=== PATIENT | female | born 1945 | race Caucasian/White ===

== ENCOUNTER 2025-01-26 15:34 | Inpatient (IN) | payer MEDICARE, OTHER ==
[2025-01-26] MEDS ORDERED: ALBUTEROL NEBULIZED 2.5 MG/3 ML INHALATION PRN (21:37)
[2025-01-26] MEDS: carBAMazepine 200 MG TAB PO SCH (21:59)
[2025-01-26] MEDS: OXYBUTYNIN 15 MG TAB.ER.24 PO SCH (21:59)
[2025-01-26] MEDS: tiZANidine 4 MG TAB PO PRN (21:59)
[2025-01-27] MEDS: HYDROcodone/APAP 5-325MG 1 EACH TAB PO PRN (00:38)
[2025-01-27] MEDS: METOPROLOL TARTRATE 50 MG TAB PO SCH (06:14)
--- NOTE | 2025-01-27 08:11 | XR ---
EXAMINATION TYPE: XR chest 2V DATE OF EXAM: 01/27/2025 8:05 AM COMPARISON: 11/20/2015 CLINICAL INDICATION: Female, 79 years old with history of SOB, CHF, , TECHNIQUE: AP and lateral views FINDINGS: Heart mildly enlarged. Mild hyperinflation. Diffuse interstitial and vascular density. No jose conso lidation or pleural effusion. IMPRESSION: Correlate for CHF with pulmonary vascular congestion. No jose pulmonary edema. [facility], , 01/27/2025 8:08 AM
[2025-01-27] MEDS: PANTOPRAZOLE 40 MG TABLET PO SCH (08:20)
[2025-01-27] MEDS: amLODIPine 10 MG TAB PO SCH (08:20)
[2025-01-27 08:45] LABS: Basophils % (A) 1 %; Eosinophils # (A) 0.3 k/uL (0-0.7); Eosinophils % (A) 5 %; HCT 42.6 % (34.0-46.0); HGB 12.8 gm/dL (11.4-16.0); Hypochromasia Slight; Lymphocytes # (A) 1.3 k/uL (1.0-4.8); Lymphocytes % (A) 22 %; MCHC 29.9 g/dL (31.0-37.0); MCV 100.3 fL (80.0-100.0); Macrocytosis Slight; Mean Platelet Volume 7.6; Monocytes # (A) 0.5 k/uL (0-1.0); Monocytes % (A) 9 %; Neutrophils # (A) 3.5 k/uL (1.3-7.7); Neutrophils % (A) 61 %; Platelet Count 377 k/uL (150-450); RBC 4.25 m/uL (3.80-5.40); RDW 14.6 % (11.5-15.5); WBC 5.8 k/uL (3.8-10.6)
[2025-01-27 09:02] LABS: ALT 22 U/L (4-34); AST 33 U/L (14-36); African American GFR (CKD) 72 (>60 ml/min/1.73 sqM); Albumin 3.4 g/dL (3.5-5.0); Alkaline Phosphatase 101 U/L (38-126); Anion Gap 3 mmol/L; Blood Urea Nitrogen 21 mg/dL (7-17); Calcium 8.5 mg/dL (8.4-10.2); Carbon Dioxide 39 mmol/L (22-30); Chloride 89 mmol/L (98-107); Glucose 115 mg/dL (74-99); Non-African American GFR(CKD) 62 (>60 ml/min/1.73 sqM); Potassium 4.6 mmol/L (3.5-5.1); Sodium 131 mmol/L (137-145); Total Bilirubin 0.7 mg/dL (0.2-1.3); Total Protein 6.5 g/dL (6.3-8.2)
[2025-01-27 09:10] LABS: NT-Pro-B-Type Natriuretic Pept 10100 pg/mL
[2025-01-27] MEDS: NON FORMULARY DRUG (Prevagen 1 TAB) PO SCH (10:18)
[2025-01-27] MEDS: SPIRONOLACTONE 25 MG TAB PO SCH (10:20)
[2025-01-27] MEDS: TORSEMIDE 20 MG TAB PO SCH (10:20)
[2025-01-27] MEDS: APIXABAN 5 MG TAB PO SCH (10:20)
--- NOTE | 2025-01-27 10:55 | P.CRDCN ---
History of Present Illness History of present illness: HISTORY OF PRESENT ILLNESS: This is a 79-year-old female with a past medical history significant for fibromyalgia, hypertension, osteoarthritis, seizure disorder, and syncope. 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 We have been asked to see the patient in consultation for new CHF and atrial fibrillation. Patient examined at the bedside. Patient was transferred from [facility] to [facility] for further evaluation and treatment. Patient is found to be positive for influenza. Patient was also diagnosed with atrial fibrillation and CHF. Patient currently denies chest pain or pressure. She denies shortness of breath. Vital signs are stable. Patient had an echocardiogram performed on 01/23/2025 at [facility] revealing ejection fraction 35 to 40% with global decreased wall motion, trace MR and trace TR. 2 view chest x-ray completed on 01/23/2025 revealed congestive heart failure changes with cardiomegaly and mild pulmonary vascular congestion. Patient also underwent chest CTA on 01/26/2025 revealing moderate to severe coronary artery calcifications, cardiomegaly with pulmonary vascular congestion and pulmonary hypertension. No evidence of pulmonary embolism. DIAGNOSTICS: - EKG reveals atrial fibrillation with slow ventricular rate - Chest xray correlate for CHF with pulmonary vascular congestion - Laboratory data: WBC 5.8. Hemoglobin 12.8. Platelet count 377. Sodium 131. Potassium 4.6. BUN 21. Creatinine 0.88. TSH 3.850. proBNP 10,100. - Current home cardiac medications include amlodipine 10 mg daily and metoprolol titrate 50 mg twice a day REVIEW OF SYSTEMS: At the time of my exam: CONSTITUTIONAL: Denies fever or chills. HEENT: Denies blurred vision, vision changes, or eye pain. Denies hemoptysis CARDIOVASCULAR: Denies chest pain. Denies orthopnea. Denies PND. Denies palpitations RESPIRATORY: Denies shortness of breath. GASTROINTESTINAL: Denies abdominal pain. Denies nausea or vomiting. HEMATOLOGIC: Denies bleeding disorders. GENITOURINARY: Denies any blood in urine. SKIN: Denies pruitis. Denies rash. PHYSICAL EXAM: VITAL SIGNS: Reviewed. GENERAL: Well-developed in no acute distress. HEENT: Head is normocephalic. Pupils are equal, round. Sclerae anicteric. Mucous membranes of the mouth are moist. Neck supple. No JVD or thyromegaly LUNGS: Respirations even and unlabored. Lungs with fine crackles at the bases. Poor inspiratory effort. HEART: Bradycardic. Irregular rate and rhythm. S1 and S2 heard. ABDOMEN: Soft. Nondistended. Nontender. EXTREMITIES: Normal range of motion. No clubbing or cyanosis. Peripheral pulses intact. No lower extremity edema NEUROLOGIC: Drowsy but arousable ASSESSMENT: Shortness of breath Acute influenza A Acute heart failure with reduced EF 35 to 40% Cardiomyopathy, ischemic versus nonischemic New onset atrial fibrillation with slow ventricular rate History of hypertension History of fibromyalgia History of osteoarthritis History of seizure disorder History of syncope PLAN: No need to repeat echocardiogram as this was performed at [facility] in December 2024 Discontinue amlodipine Decrease metoprolol tartrate to 25 mg twice a day Add Eliquis 5 mg twice a day Add atorvastatin 20 mg at night Add losartan 25 mg daily Add spironolactone 12.5 mg daily Add Demadex 10 mg daily Continue telemetry monitoring Recommend eventual ischemic evaluation Further recommendations pending patient course Nurse practitioner note has been reviewed by physician. Signing provider agrees with the documented findings, assessment, and plan of care documented by ICT BUSINESS DEVELOPMENT MANAGER as a scribe. Past Medical History Past Medical History: Fibromyalgia, Hypertension, Osteoarthritis (OA), Pneumonia, Rheumatoid Arthritis (RA), Seizure Disorder, Syncope Additional Past Medical History / Comment(s): electric shocks to the right eye and eye twitches -- nerve endings History of Any Multi-Drug Resistant Organisms: None Reported Past Surgical History: Bariatric Surgery, Cholecystectomy, Joint Replacement, Orthopedic Surgery Additional Past Surgical History / Comment(s): left femur gamaliel from knee to hip 09/09. gastric bypass. bilat carpal tunnel. bilat tka. bilat hip. 2009 - Dr Mao out of [place]; surgery on right eye with silicone implants to stop the nerve shocking. Past Anesthesia/Blood Transfusion Reactions: No Reported Reaction Past Psychological History: No Psychological Hx Reported Smoking Status: Former smoker Past Alcohol Use History: None Reported Past Drug Use History: None Reported - Past Family History Father Family Medical History: CVA/TIA, Diabetes Mellitus Mother Family Medical History: No Reported History Brother(s) History Unknown: Yes Sister(s) History Unknown: Yes Medications and Allergies Home Medications Medication Instructions Recorded Confirmed Type HYDROcodone/APAP 5-325MG [[place] 1 tab PO Q8H PRN 11/16/15 01/26/25 History 5-325] Oxybutynin Chloride [oxyBUTYnin 15 mg PO HS 11/16/15 01/26/25 History chloride ER] carBAMazepine [TEGretol] 200 mg PO TID 11/16/15 01/26/25 History tiZANidine [Zanaflex] 4 mg PO BID PRN 11/16/15 01/26/25 History Albuterol Inhaler [Ventolin Hfa 2 puff INHALATION RT-Q4H PRN 01/26/25 01/26/25 History Inhaler] Ibuprofen [Motrin] 800 mg PO Q8H PRN 01/26/25 01/26/25 History Metoprolol Tartrate [Lopressor] 50 mg PO BID-W/MEALS 01/26/25 01/26/25 History Omeprazole 20 mg PO DAILY 01/26/25 01/26/25 History Prevagen 1 tab PO DAILY 01/26/25 01/26/25 History amLODIPine [Norvasc] 10 mg PO DAILY 01/26/25 01/26/25 History Allergies Allergy/AdvReac Type Severity Reaction Status Date / Time No Known Allergies Allergy Verified 01/26/25 19:29 Physical Exam Vitals: Vital Signs Temp Pulse Resp BP Pulse Ox 01/27/25 04:00 69 16 112/54 98 01/27/25 00:00 93 16 104/62 95 01/26/25 19:33 97.9 F 89 16 124/73 93 L Intake and Output 01/26/25 01/27/25 01/27/25 22:59 06:59 14:59 Intake Total 540 Output Total 375 Balance 540 -375 Intake: Oral 540 Output: Urine 375 Other: Voiding Method Indwelling Catheter Indwelling Catheter Weight 126 kg 127 kg Results 01/27/25 08:10 01/27/25 08:10 Current Medications Generic Name Dose Route Start Last Admin Trade Name Freq PRN Reason Stop Dose Admin Hydrocodone Bitart/Acetaminophen 1 each 01/26/25 21:37 01/27/25 00:38 Hydrocodone/Apap 5-325mg 1 Each Tab PO 1 each Q8H PRN Administration Pain Albuterol Sulfate 2.5 mg 01/26/25 21:37 Albuterol Nebulized 2.5 Mg/3 Ml INHALATION RT-Q4H PRN Shortness Of Breath Amlodipine Besylate 10 mg 01/27/25 09:00 Amlodipine 10 Mg Tab PO DAILY YOUNG Carbamazepine 200 mg 01/26/25 22:00 01/26/25 21:59 Carbamazepine 200 Mg Tab PO 200 mg TID YOUNG Administration Metoprolol Tartrate 50 mg 01/27/25 07:30 01/27/25 06:14 Metoprolol Tartrate 50 Mg Tab PO 50 mg BID-W/MEALS YOUNG Administration Oxybutynin Chloride 15 mg 01/26/25 21:45 01/26/25 21:59 Oxybutynin 15 Mg Tab.Er.24 PO 15 mg HS YOUNG Administration Pantoprazole Sodium 40 mg 01/27/25 09:00 Pantoprazole 40 Mg Tablet PO DAILY [facility] Tizanidine HCl 4 mg 01/26/25 21:37 01/27/25 06:15 Tizanidine 4 Mg Tab PO 4 mg BID PRN Administration Muscle Spasm Intake and Output 01/26/25 01/27/25 01/27/25 22:59 06:59 14:59 Intake Total 540 Output Total 375 Balance 540 -375 Intake: Oral 540 Output: Urine 375 Other: Voiding Method Indwelling Catheter Indwelling Catheter Weight 126 kg 127 kg
[2025-01-27] MEDS: METOPROLOL TARTRATE 25 MG TAB PO SCH (17:21)
[2025-01-27] MEDS ORDERED: METOPROLOL TARTRATE 50 MG TAB PO SCH (17:30)
[2025-01-27] MEDS ORDERED: METOPROLOL SUCCINATE (ER) 25 MG TAB.ER.24H PO SCH (17:30)
--- NOTE | 2025-01-27 17:35 | P.HPIM ---
History of Present Illness H&P Date: 01/27/25 Chief Complaint: Short of breath This is a pleasant 79-year-old patient, follows with GLOBAL RECRUITER Reny Mcrae. Patient is very hard of hearing. But can do some mouth reading and hand movements reading. Chronic medical condition include fibromyalgia, hypertension, osteoarthritis, rheumatoid arthritis, seizure disorder,. Patient lives with her daughter. Does use a four-wheel walker. Patient was transferred here from [facility] accepted by Dr. Ordonez in from cardiology. Patient was then diagnosed with atrial fibrillation and CHF. Patient complains of shortness of breath. Cough with no sputum production. Also diagnosed positive for influenza. Per cardiology 2D echo in January 23 of this year EF showed 30 to 35%. Review of systems difficult because patient is very hard of hearing Social history: Lives with her daughter. Does use a four-wheel walker Physical examination: VITAL SIGNS: 97.4, 81, 18, 106/54, 97% on 2 L GENERAL: BMI 51.2, laying in bed, appears short of breath. EYES: Pupils equal. Conjunctiva edyta l. HEENT: External appearance of nose and ears normal, oral cavity grossly normal. Very hard of hearing NECK: JVD possibly raised; masses not palpable. HEART: First and second heart sounds are normal; no edema. LUNGS: Respiratory rate increased with few crackles. ABDOMEN: Soft, nontender, liver spleen not palpable, no masses palpable. PSYCH: Patient does answer questions but because of very hard of hearing sometimes difficult l. MUSCULOSKELETAL:No Clubbing/cyanosis;muscles-grossly intact. OA NEUROLOGICAL: Cranial nerves grossly intact; no facial asymmetry, power and sensation grossly intact. LYMPHATICS: No lymph nodes palpable in the axilla and neck INVESTIGATIONS, reviewed in the clinical context: January 27, 2025: White count 5.8 hemoglobin 12.8 platelets 377 sodium 131 potassium 4.6 BUN 21 creatinine 0.88 proBNP 99807 TSH 3.8 EKG tracing personally reviewed by me-atrial fibrillation. Rate 68. Chest x-ray film personally reviewed by me-cardiomegaly. Pulm edema Previous studies: Per cardiology notes 2D echo on January 23, 2025 at [facility] showed a EF of 35 to 40%. Global decrease in wall motion. Assessment plan: - Acute on chronic congestive heart failure exacerbation from systolic dys function EF 30 to 35% Aldactone. Lopressor. Cozaar. Diuretics. Strict I's and O's. - Acute hypoxic respiratory failure on presentation combination of influenza and CHF Patient was 93% on 2 L on presentation. Oxygen supplementation - Persistent atrial fibrillation. Rate controlled Telemetry. Lopressor 25 mg twice daily. Eliquis - Acute influenza Tamiflu - Hyponatremia, with hypervolemia Diuretics - Chronic urine incontinence/bladder dysfunction Ditropan XL - Essential hypertension Cozaar. Lopressor. - Chronic rheumatoid arthritis [place] 5 as needed - GERD Omeprazole - COPD in a prior smoker Albuterol as needed - Severely hard of hearing - Seizure disorder Tegretol - Chronic gait dysfunction does use a four-wheel walker Past Medical History Past Medical History: Fibromyalgia, Hypertension, Osteoarthritis (OA), Pneumonia , Rheumatoid Arthritis (RA), Seizure Disorder, Syncope Additional Past Medical History / Comment(s): electric shocks to the right eye and eye twitches -- nerve endings History of Any Multi-Drug Resistant Organisms: None Reported Past Surgical History: Bariatric Surgery, Cholecystectomy, Joint Replacement, Orthopedic Surgery Additional Past Surgical History / Comment(s): left femur gamaliel from knee to hip 09/09. gastric bypass. bilat carpal tunnel. bilat tka. bilat hip. 2009 - Dr Mao out of [place]; surgery on right eye with silicone implants to stop the nerve shocking. Past Anesthesia/Blood Transfusion Reactions: No Reported Reaction Past Psychological History: No Psychological Hx Reported Smoking Status: Former smoker Past Alcohol Use History: None Reported Past Drug Use History: None Reported - Past Family History Father Family Medical History: CVA/TIA, Diabetes Mellitus Mother Family Medical History: No Reported History Brother(s) History Unknown: Yes Sister(s) History Unknown: Yes Medications and Allergies Home Medications Medication Instructions Recorded Confirmed Type HYDROcodone/APAP 5-325MG [[place] 1 tab PO Q8H PRN 11/16/15 01/26/25 History 5-325] Oxybutynin Chloride [oxyBUTYnin 15 mg PO HS 11/16/15 01/26/25 History chloride ER] carBAMazepine [TEGretol] 200 mg PO TID 11/16/15 01/26/25 History tiZANidine [Zanaflex] 4 mg PO BID PRN 11/16/15 01/26/25 History Albuterol Inhaler [Ventolin Hfa 2 puff INHALATION RT-Q4H PRN 01/26/25 01/26/25 History Inhaler] Ibuprofen [Motrin] 800 mg PO Q8H PRN 01/26/25 01/26/25 History Metoprolol Tartrate [Lopressor] 50 mg PO BID-W/MEALS 01/26/25 01/26/25 History Omeprazole 20 mg PO DAILY 01/26/25 01/26/25 History Prevagen 1 tab PO DAILY 01/26/25 01/26/25 History amLODIPine [Norvasc] 10 mg PO DAILY 01/26/25 01/26/25 History Allergies Allergy/AdvReac Type Severity Reaction Status Date / Time No Known Allergies Allergy Verified 01/26/25 19:29 Physical Exam Vitals: Vital Signs Temp Pulse Resp BP Pulse Ox 01/27/25 08:19 97.4 F L 81 18 106/54 97 01/27/25 04:00 69 16 112/54 98 01/27/25 00:00 93 16 104/62 95 01/26/25 19:33 97.9 F 89 16 124/73 93 L Intake and Output 01/26/25 01/27/25 01/27/25 22:59 06:59 14:59 Intake Total 540 118 Output Total 375 Balance 540 -375 118 Intake: Oral 540 118 Output: Urine 375 Other: Voiding Method Indwelling Catheter Indwelling Catheter Weight 126 kg 127 kg Results CBC & Chem 7: 01/27/25 08:10 01/27/25 08:10 Labs: Abnormal Lab Results - Last 24 Hours (Table) 01/27/25 01/27/25 Range/Units 08:10 08:10 MCV 100.3 H (80.0-100.0) fL MCHC 29.9 L (31.0-37.0) g/dL Sodium 131 L (137-145) mmol/L Chloride 89 L (98-107) mmol/L Carbon Dioxide 39 H (22-30) mmol/L BUN 21 H (7-17) mg/dL Glucose 115 H (74-99) mg/dL Albumin 3.4 L (3.5-5.0) g/dL Thrombosis Risk Factor Assmnt - Choose All That Apply Each Factor Represents 1 point: Heart failure (<1month), Obesity (BMI >25) Other Risk Factors: Yes Each Risk Factor Represents 3 Points: Age 75 years or older Other congenital or acquired thrombophilia - If yes, enter type in comment: No Thrombosis Risk Factor Assessment Total Risk Factor Score: 5 Thrombosis Risk Factor Assessment Level: High Risk
[2025-01-27] MEDS: OSELTAMIVIR 75 MG CAP PO ONE (18:21)
[2025-01-27 18:30] LABS: Chol/HDL Ratio 2.11 Ratio; LDL Cholesterol,Calculated 69.2 mg/dL (0.0-131.0)
[2025-01-27] MEDS: OSELTAMIVIR 30 MG CAP PO SCH (19:59)
[2025-01-27] MEDS: ATORVASTATIN 20 MG TAB PO SCH (19:59)
[2025-01-28 07:35] LABS: African American GFR (CKD) 70 (>60 ml/min/1.73 sqM); Anion Gap 3 mmol/L; Blood Urea Nitrogen 25 mg/dL (7-17); Calcium 8.3 mg/dL (8.4-10.2); Carbon Dioxide 36 mmol/L (22-30); Chloride 91 mmol/L (98-107); Glucose 107 mg/dL (74-99); Non-African American GFR(CKD) 61 (>60 ml/min/1.73 sqM); Potassium 4.2 mmol/L (3.5-5.1); Sodium 130 mmol/L (137-145)
[2025-01-28] MEDS: LOSARTAN 25 MG TAB PO SCH (08:05)
--- NOTE | 2025-01-28 09:02 | XR ---
EXAMINATION TYPE: XR chest 2V DATE OF EXAM: 01/28/2025 7:55 AM COMPARISON: None. CLINICAL INDICATION: Female, 79 years old with history of Follow-up CHF, TECHNIQUE: XR chest 2V view(s) obtained. FINDINGS: The heart size is upper limits normal. The pulmonary vasculature is upper limits normal. The lungs are clear. IMPRESSION: 1. No acute pulmonary process. [facility], , 01/28/2025 9:00 AM
--- NOTE | 2025-01-28 18:04 | P.PN ---
Progress Note - Text Progress Note Date: 01/28/25 Chief Complaint: Short of breath This is a pleasant 79-year-old patient, follows with POWER ENGINEER Reny Mcrae. Patient is very hard of hearing. But can do some mouth reading and hand movements reading. Chronic medical condition include fibromyalgia, hypertension , osteoarthritis, rheumatoid arthritis, seizure disorder,. Patient lives with her daughter. Does use a four-wheel walker. Patient was transferred here from [facility] accepted by Dr. Ordonez in from cardiology. Patient was then diagnosed with atrial fibrillation and CHF. Patient complains of shortness of breath. Cough with no sputum production. Also diagnosed positive for influenza. Per cardiology 2D echo in January 23 of this year EF showed 30 to 35%. January 28: Patient did tolerate some diet. Breathing a bit better. On oral Demadex. Tamiflu. Chest on examination has crackles. Chest x-ray review shows some venous prominence. Will give 1 dose of Lasix 20 mg. Spoke to the nurse get the patient up in a chair. Active Medications Hydrocodone Bitart/Acetaminophen (Hydrocodone/Apap 5-325mg 1 Each Tab) 1 each PO Q8H PRN PRN Reason: Pain Last Admin: 01/27/25 00:38 Dose: 1 each Albuterol Sulfate (Albuterol Nebulized 2.5 Mg/3 Ml) 2.5 mg INHALATION RT-Q4H PRN PRN Reason: Shortness Of Breath Apixaban (Apixaban 5 Mg Tab) 5 mg PO BID YOUNG; Protocol Last Admin: 01/28/25 08:06 Dose: 5 mg Atorvastatin Calcium (Atorvastatin 20 Mg Tab) 20 mg PO HS [facility] Last Admin: 01/27/25 19:59 Dose: 20 mg Carbamazepine (Carbamazepine 200 Mg Tab) 200 mg PO TID [facility] Last Admin: 01/28/25 17:13 Dose: 200 mg Losartan Potassium (Losartan 25 Mg Tab) 25 mg PO DAILY [facility] Last Admin: 01/28/25 08:05 Dose: 25 mg Metoprolol Tartrate (Metoprolol Tartrate 25 Mg Tab) 25 mg PO BID-W/MEALS [facility] Last Admin: 01/28/25 17:13 Dose: 25 mg Oseltamivir Phosphate (Oseltamivir 30 Mg Cap) 30 mg PO BID [facility]; Protocol Stop: 01/31/25 21:01 Last Admin: 01/28/25 08:06 Dose: 30 mg Oxybutynin Chloride (Oxybutynin 15 Mg Tab.Er.24) 15 mg PO HS [facility] Last Admin: 01/27/25 19:59 Dose: 15 mg Pantoprazole Sodium (Pantoprazole 40 Mg Tablet) 40 mg PO DAILY [facility] Last Admin: 01/28/25 08:06 Dose: 40 mg Spironolactone (Spironolactone 25 Mg Tab) 12.5 mg PO DAILY [facility] Last Admin: 01/28/25 08:06 Dose: 12.5 mg Tizanidine HCl (Tizanidine 4 Mg Tab) 4 mg PO BID PRN PRN Reason: Muscle Spasm Last Admin: 01/27/25 23:23 Dose: 4 mg Torsemide (Torsemide 20 Mg Tab) 10 mg PO DAILY [facility] Last Admin: 01/28/25 08:06 Dose: 10 mg Social history: Lives with her daughter. Does use a four-wheel walker Physical examination: VITAL SIGNS: 98, 60, 18, 130 x 61, 98% 2 L GENERAL: BMI 51.2, laying in bed, some shortness of breath EYES: Pupils equal. Conjunctiva edyta l. HEENT: External appearance of nose and ears normal, oral cavity grossly normal. Very hard of hearing NECK: JVD possibly raised; masses not palpable. HEART: First and second heart sounds are normal; no edema. LUNGS: Respiratory rate increased. Both inspiratory expiratory crackles. ABDOMEN: Soft, nontender, liver spleen not palpable, no masses palpable. PSYCH: Patient does answer questions but because of very hard of hearing sometimes difficult l. MUSCULOSKELETAL:No Clubbing/cyanosis;muscles-grossly intact. OA INVESTIGATIONS, reviewed in the clinical context: January 28: Sodium 130 potassium 4.2 creatinine 0.89 chest x-ray film personally reviewed by me-some venous prominence January 27, 2025: White count 5.8 hemoglobin 12.8 platelets 377 sodium 131 potassium 4.6 BUN 21 creatinine 0.88 proBNP 59510 TSH 3.8 EKG tracing personally reviewed by me-atrial fibrillation. Rate 68. Chest x-ray film personally reviewed by me-cardiomegaly. Pulm edema Previous studies: Per cardiology notes 2D echo on January 23, 2025 at [facility] showed a EF of 35 to 40%. Global decrease in wall motion. Assessment plan: - Acute on chronic congestive heart failure exacerbation from systolic dysfunction EF 30 to 35%: Uncontrolled today Aldactone. Lopressor. Cozaar. Demadex 10 mg a day.. Strict I's and O's. Give 1 dose of IV Lasix 20 mg. Additionally - Acute hypoxic respiratory failure on presentation combination of influenza and CHF Patient was 93% on 2 L on presentation. Oxygen 2 L - Persistent atrial fibrillation. Rate controlled Telemetry. Lopressor 25 mg twice daily. Eliquis - Acute influenza Tamiflu - Hyponatremia, with hypervolemia Diuretics - Chronic urine incontinence/bladder dysfunction Ditropan XL - Essential hypertension Cozaar. Lopressor. - Chronic rheumatoid arthritis [place] 5 as needed - GERD Omeprazole - COPD in a prior smoker Albuterol as needed - Severely hard of hearing - Seizure disorder Tegretol - Chronic gait dysfunction does use a four-wheel walker - Full code [nurse did confirm the same from the family] Past Medical History Past Medical History: Fibromyalgia, Hypertension, Osteoarthritis (OA), Pneumonia, Rheumatoid Arthritis (RA), Seizure Disorder, Syncope Additional Past Medical History / Comment(s): electric shocks to the right eye and eye twitches -- nerve endings History of Any Multi-Drug Resistant Organisms: None Reported Past Surgical History: Bariatric Surgery, Cholecystectomy, Joint Replacement, Orthopedic Surgery Additional Past Surgical History / Comment(s): left femur gamaliel from knee to hip 09/09. gastric bypass. bilat carpal tunnel. bilat tka. bilat hip. 2009 - Dr Mao out of [place]; surgery on right eye with silicone implants to stop the nerve shocking. Past Anesthesia/Blood Transfusion Reactions: No Reported Reaction Past Psychological History: No Psychological Hx Reported Smoking Status: Former smoker Past Alcohol Use History: None Reported Past Drug Use History: None Reported
[2025-01-28] MEDS: FUROSEMIDE 10 MG/ML 2 ML VIAL IV STA (18:15)
--- NOTE | 2025-01-28 23:43 | P.PN ---
Subjective Progress Note Date: 01/28/25 HISTORY OF PRESENT ILLNESS: This is a 79-year-old female with a past medical history significant for fi bromyalgia, hypertension, osteoarthritis, seizure disorder, and syncope. 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 We have been asked to see the patient in consultation for new CHF and atrial fibrillation. Patient examined at the bedside. Patient was transferred from [facility] to [facility] for further evaluation and treatment. Patient is found to be positive for influenza. Patient was also diagnosed with atrial fibrillation and CHF. Patient currently denies chest pain or pressure. She denies shortness of breath. Vital signs are stable. Patient had an echocardiogram performed on 01/23/2025 at [place] revealing ejection fraction 35 to 40% with global decreased wall motion, trace MR and trace TR. 2 view chest x-ray completed on 01/23/2025 revealed congestive heart f ailure changes with cardiomegaly and mild pulmonary vascular congestion. Patient also underwent chest CTA on 01/26/2025 revealing moderate to severe coronary artery calcifications, cardiomegaly with pulmonary vascular congestion and pulmonary hypertension. No evidence of pulmonary embolism. DIAGNOSTICS: - EKG reveals atrial fibrillation with slow ventricular rate - Chest xray correlate for CHF with pulmonary vascular congestion - Laboratory data: WBC 5.8. Hemoglobin 12.8. Platelet count 377. Sodium 131. Potassium 4.6. BUN 21. Creatinine 0.88. TSH 3.850. proBNP 10,100. - Current home cardiac medications include amlodipine 10 mg daily and metoprolol titrate 50 mg twice a day Progress note 01/28/2025 BP 130/60, Heart rate 60 bpm Sinus rhythm on telemetry Labs shows BUN 25, creatinine 0.8 PHYSICAL EXAM: VITAL SIGNS: Reviewed. GENERAL: Well-developed in no acute distress. HEENT: Head is normocephalic. Pupils are equal, round. Sclerae anicteric. Mucous membranes of the mouth are moist. Neck supple. No JVD or thyromegaly LUNGS: Respirations even and unlabored. Lungs with fine crackles at the bases. Poor inspiratory effort. HEART: Bradycardic. Irregular rate and rhythm. S1 and S2 heard. ABDOMEN: Soft. Nondistended. Nontender. EXTREMITIES: Normal range of motion. No clubbing or cyanosis. Peripheral pulses intact. No lower extremity edema NEUROLOGIC: Drowsy but arousable ASSESSMENT: Dyspnea on exertion, mildly improved since admission Acute influenza A Acute heart failure with reduced EF 35 to 40% Cardiomyopathy, ischemic versus nonischemic New onset atrial fibrillation with slow ventricular rate History of hypertension History of fibromyalgia History of osteoarthritis History of seizure disorder History of syncope PLAN: No need to repeat echocardiogram as this was performed at [place] in December 2024 Discontinue amlodipine Decrease metoprolol tartrate to 25 mg twice a day Add Eliquis 5 mg twice a day Add atorvastatin 20 mg at night Add losartan 25 mg daily Add spironolactone 12.5 mg daily Add Demadex 10 mg daily Continue telemetry monitoring Recommend eventual ischemic evaluation Further recommendations pending patient course Objective - Vital Signs Vital signs: Vital Signs Temp 97.9 F 01/28/25 20:00 Pulse 74 01/28/25 20:00 Resp 16 01/28/25 20:00 BP 118/65 01/28/25 20:00 Pulse Ox 97 01/28/25 20:00 FiO2 Intake & Output 01/28/25 01/28/25 01/29/25 06:59 18:59 06:59 Intake Total 780 378 240 Output Total 400 1000 Balance 380 -622 240 Weight 115.5 kg Intake: IV 20 Invasive Line 3 20 Oral 780 358 240 Output: Urine 400 1000 Other: Voiding Method Indwelling Catheter Indwelling Catheter Indwelling Catheter # Bowel Movements 1 1 - Labs CBC & Chem 7: 01/27/25 08:10 01/28/25 06:56 Labs: Abnormal Lab Results - Last 24 Hours (Table) 01/28/25 Range/Units 06:56 Sodium 130 L (137-145) mmol/L Chloride 91 L (98-107) mmol/L Carbon Dioxide 36 H (22-30) mmol/L BUN 25 H (7-17) mg/dL Glucose 107 H (74-99) mg/dL Calcium 8.3 L (8.4-10.2) mg/dL
[2025-01-29 07:26] LABS: African American GFR (CKD) 64 (>60 ml/min/1.73 sqM); Anion Gap 5 mmol/L; Blood Urea Nitrogen 26 mg/dL (7-17); Calcium 8.3 mg/dL (8.4-10.2); Carbon Dioxide 34 mmol/L (22-30); Chloride 91 mmol/L (98-107); Glucose 86 mg/dL (74-99); Non-African American GFR(CKD) 56 (>60 ml/min/1.73 sqM); Sodium 130 mmol/L (137-145)
[2025-01-29 07:31] LABS: Potassium 4.6 mmol/L (3.5-5.1)
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
[2025-01-29] MEDS: FUROSEMIDE 10 MG/ML 2 ML VIAL IV STA (17:51)
--- NOTE | 2025-01-29 20:52 | P.PN ---
Subjective Progress Note Date: 01/29/25 HISTORY OF PRESENT ILLNESS: This is a 79-year-old female with a past medical history significant for fi bromyalgia, hypertension, osteoarthritis, seizure disorder, and syncope. 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 We have been asked to see the patient in consultation for new CHF and atrial fibrillation. Patient examined at the bedside. Patient was transferred from [facility] to [facility] for further evaluation and treatment. Patient is found to be positive for influenza. Patient was also diagnosed with atrial fibrillation and CHF. Patient currently denies chest pain or pressure. She denies shortness of breath. Vital signs are stable. Patient had an echocardiogram performed on 01/23/2025 at [place] revealing ejection fraction 35 to 40% with global decreased wall motion, trace MR and trace TR. 2 view chest x-ray completed on 01/23/2025 revealed congestive heart f ailure changes with cardiomegaly and mild pulmonary vascular congestion. Patient also underwent chest CTA on 01/26/2025 revealing moderate to severe coronary artery calcifications, cardiomegaly with pulmonary vascular congestion and pulmonary hypertension. No evidence of pulmonary embolism. DIAGNOSTICS: - EKG reveals atrial fibrillation with slow ventricular rate - Chest xray correlate for CHF with pulmonary vascular congestion - Laboratory data: WBC 5.8. Hemoglobin 12.8. Platelet count 377. Sodium 131. Potassium 4.6. BUN 21. Creatinine 0.88. TSH 3.850. proBNP 10,100. - Current home cardiac medications include amlodipine 10 mg daily and metoprolol titrate 50 mg twice a day Progress note 01/28/2025 BP 130/60, Heart rate 60 bpm Sinus rhythm on telemetry Labs shows BUN 25, creatinine 0.8 01/29/2025 BP 121/69, heart rate 78 bpm, BUN 26, creatinine 0.9, Appears to be reaching euvolemia Sitting in a chair, family at bedside PHYSICAL EXAM: VITAL SIGNS: Reviewed. GENERAL: Well-developed in no acute distress. HEENT: Head is normocephalic. Pupils are equal, round. Sclerae anicteric. Mucous membranes of the mouth are moist. Neck supple. Mildly elevated LUNGS: Respirations even and unlabored. Lungs with fine crackles at the bases. Poor inspiratory effort. HEART: Bradycardic. Irregular rate and rhythm. S1 and S2 heard. ABDOMEN: Soft. Nondistended. Nontender. EXTREMITIES: No significant swelling in the legs NEUROLOGIC: Awake, alert oriented ASSESSMENT: Dyspnea on exertion, mildly improved since admission Acute influenza A Acute heart failure with reduced EF 35 to 40% Cardiomyopathy, ischemic versus nonischemic New onset atrial fibrillation with controlled ventricular response History of hypertension History of fibromyalgia History of osteoarthritis History of seizure disorder History of syncope PLAN: No need to repeat echocardiogram as this was performed at [place] in December 2024 Discontinue amlodipine Decrease metoprolol tartrate to 25 mg twice a day Add Eliquis 5 mg twice a day Add atorvastatin 20 mg at night Add losartan 25 mg daily Add spironolactone 12.5 mg daily Add Demadex 10 mg daily Continue telemetry monitoring Recommend eventual ischemic evaluation Consider rhythm control with LYNDSEY cardioversion once influenza resolves Anticipate discharge tomorrow Objective - Vital Signs Vital signs: Vital Signs Temp 98 F 01/29/25 15:44 Pulse 85 01/29/25 15:44 Resp 18 01/29/25 15:44 BP 150/85 01/29/25 15:44 Pulse Ox 96 01/29/25 15:44 FiO2 Intake & Output 01/29/25 01/29/25 01/30/25 06:59 18:59 06:59 Intake Total 240 378 Output Total 1000 1100 Balance -760 -722 Weight 108.5 kg Intake: IV 20 Invasive Line 3 20 Oral 240 358 Output: Urine 1000 1100 Other: Voiding Method Indwelling Catheter Indwelling Catheter # Bowel Movements 1 1 - Labs CBC & Chem 7: 01/27/25 08:10 01/29/25 06:08 Labs: Abnormal Lab Results - Last 24 Hours (Table) 01/29/25 Range/Units 06:08 Sodium 130 L (137-145) mmol/L Chloride 91 L (98-107) mmol/L Carbon Dioxide 34 H (22-30) mmol/L BUN 26 H (7-17) mg/dL Calcium 8.3 L (8.4-10.2) mg/dL
[2025-01-30 06:53] LABS: African American GFR (CKD) 48 (>60 ml/min/1.73 sqM); Anion Gap 1 mmol/L; Blood Urea Nitrogen 27 mg/dL (7-17); Calcium 8.4 mg/dL (8.4-10.2); Carbon Dioxide 39 mmol/L (22-30); Chloride 89 mmol/L (98-107); Glucose 87 mg/dL (74-99); Non-African American GFR(CKD) 42 (>60 ml/min/1.73 sqM); Potassium 4.7 mmol/L (3.5-5.1); Sodium 129 mmol/L (137-145)
--- NOTE | 2025-01-30 11:34 | P.PN ---
Subjective Progress Note Date: 01/30/25 HISTORY OF PRESENT ILLNESS: This is a 79-year-old female with a past medical history significant for fi bromyalgia, hypertension, osteoarthritis, seizure disorder, and syncope. 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 We have been asked to see the patient in consultation for new CHF and atrial fibrillation. Patient examined at the bedside. Patient was transferred from [facility] to [facility] for further evaluation and treatment. Patient is found to be positive for influenza. Patient was also diagnosed with atrial fibrillation and CHF. Patient currently denies chest pain or pressure. She denies shortness of breath. Vital signs are stable. Patient had an echocardiogram performed on 01/23/2025 at [place] revealing ejection fraction 35 to 40% with global decreased wall motion, trace MR and trace TR. 2 view chest x-ray completed on 01/23/2025 revealed congestive heart f ailure changes with cardiomegaly and mild pulmonary vascular congestion. Patient also underwent chest CTA on 01/26/2025 revealing moderate to severe coronary artery calcifications, cardiomegaly with pulmonary vascular congestion and pulmonary hypertension. No evidence of pulmonary embolism. DIAGNOSTICS: - EKG reveals atrial fibrillation with slow ventricular rate - Chest xray correlate for CHF with pulmonary vascular congestion - Laboratory data: WBC 5.8. Hemoglobin 12.8. Platelet count 377. Sodium 131. Potassium 4.6. BUN 21. Creatinine 0.88. TSH 3.850. proBNP 10,100. - Current home cardiac medications include amlodipine 10 mg daily and metoprolol titrate 50 mg twice a day Progress note 01/28/2025 BP 130/60, Heart rate 60 bpm Sinus rhythm on telemetry Labs shows BUN 25, creatinine 0.8 01/29/2025 BP 121/69, heart rate 78 bpm, BUN 26, creatinine 0.9, Appears to be reaching euvolemia Sitting in a chair, family at bedside 01/30 Patient seen and examined. Patient remains in atrial fibrillation with controlled rate and IVCD. She complains of cough. She denies chest pain or chest pressure. No palpitations. Blood pressure 128/58, heart rate in the 60s and 70s, pulse ox 98% on 2 L nasal cannula. Repeat blood work reveals sodium at 129, BUN 27 creatinine 1.22. Patient is maintained on oral oral medications. PHYSICAL EXAM: VITAL SIGNS: Reviewed. GENERAL: Well-developed in no acute distress. HEENT: Head is normocephalic. Pupils are equal, round. Sclerae anicteric. Mucous membranes of the mouth are moist. Neck supple. Mildly elevated LUNGS: Respirations even and unlabored. Rhonchi bilateral. HEART: Bradycardic. Irregular rate and rhythm. S1 and S2 heard. 2/6 systolic murmur. ABDOMEN: Soft. Nondistended. Nontender. EXTREMITIES: No lower extremity edema NEUROLOGIC: Awake, alert oriented ASSESSMENT: Dyspnea on exertion, mildly improved since admission Acute influenza A Acute heart failure with reduced EF 35 to 40% Cardiomyopathy, ischemic versus nonischemic New onset atrial fibrillation with controlled ventricular response History of hypertension History of fibromyalgia History of osteoarthritis History of seizure disorder History of syncope PLAN: No need to repeat echocardiogram as this was performed at [place] in December 2024 Discontinue amlodipine Decrease metoprolol tartrate to 25 mg twice a day Continue new cardiac medications: Eliquis 5 mg twice a day, atorvastatin 20 mg at night, losartan 25 mg daily, spironolactone 12.5 mg daily, Demadex 10 mg daily Recommend eventual ischemic evaluation Consider rhythm control with LYNDSEY cardioversion once influenza resolves and she may follow-up in the office for this Following discharge, patient will follow-up in the office with Dr. Lugo in 2 weeks. Nurse practitioner note has been reviewed, I agree with documented findings and plan of care. Patient was seen and examined. Objective - Vital Signs Vital signs: Vital Signs Temp 98.1 F 01/30/25 00:00 Pulse 70 01/30/25 04:00 Resp 20 01/30/25 04:00 BP 120/91 01/30/25 04:00 Pulse Ox 99 01/30/25 04:00 FiO2 Intake & Output 01/29/25 01/30/25 01/30/25 18:59 06:59 18:59 Intake Total 378 550 240 Output Total 1100 1500 Balance -722 -950 240 Weight 113 kg Intake: IV 20 10 Invasive Line 3 20 10 Oral 358 540 240 Output: Urine 1100 1500 Other: Voiding Method Indwelling Catheter Indwelling Catheter # Bowel Movements 1 1 - Labs CBC & Chem 7: 01/27/25 08:10 01/30/25 05:51 Labs: Abnormal Lab Results - Last 24 Hours (Table) 01/30/25 Range/Units 05:51 Sodium 129 L (137-145) mmol/L Chloride 89 L (98-107) mmol/L Carbon Dioxide 39 H (22-30) mmol/L BUN 27 H (7-17) mg/dL Creatinine 1.22 H (0.52-1.04) mg/dL
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
[2025-01-31 07:06] LABS: African American GFR (CKD) 56 (>60 ml/min/1.73 sqM); Anion Gap 2 mmol/L; Blood Urea Nitrogen 21 mg/dL (7-17); Calcium 8.6 mg/dL (8.4-10.2); Carbon Dioxide 36 mmol/L (22-30); Chloride 93 mmol/L (98-107); Glucose 94 mg/dL (74-99); Non-African American GFR(CKD) 48 (>60 ml/min/1.73 sqM); Potassium 4.3 mmol/L (3.5-5.1); Sodium 131 mmol/L (137-145)
[2025-01-31] MEDS: OSELTAMIVIR 30 MG CAP PO SCH (08:26)
[2025-01-31 11:33] VITALS: BP 125/82; TEMP 98.2
[2025-01-31 12:09] VITALS: PULSE 72
[2025-01-31 15:05] VITALS: RESP 18
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
--- NOTE | 2025-02-01 07:05 | P.PN ---
Subjective Progress Note Date: 01/31/25 HISTORY OF PRESENT ILLNESS: This is a 79-year-old female with a past medical history significant for fi bromyalgia, hypertension, osteoarthritis, seizure disorder, and syncope. 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 We have been asked to see the patient in consultation for new CHF and atrial fibrillation. Patient examined at the bedside. Patient was transferred from [facility] to [facility] for further evaluation and treatment. Patient is found to be positive for influenza. Patient was also diagnosed with atrial fibrillation and CHF. Patient currently denies chest pain or pressure. She denies shortness of breath. Vital signs are stable. Patient had an echocardiogram performed on 01/23/2025 at [facility] revealing ejection fraction 35 to 40% with global decreased wall motion, trace MR and trace TR. 2 view chest x-ray completed on 01/23/2025 revealed congestive heart f ailure changes with cardiomegaly and mild pulmonary vascular congestion. Patient also underwent chest CTA on 01/26/2025 revealing moderate to severe coronary artery calcifications, cardiomegaly with pulmonary vascular congestion and pulmonary hypertension. No evidence of pulmonary embolism. DIAGNOSTICS: - EKG reveals atrial fibrillation with slow ventricular rate - Chest xray correlate for CHF with pulmonary vascular congestion - Laboratory data: WBC 5.8. Hemoglobin 12.8. Platelet count 377. Sodium 131. Potassium 4.6. BUN 21. Creatinine 0.88. TSH 3.850. proBNP 10,100. - Current home cardiac medications include amlodipine 10 mg daily and metoprolol titrate 50 mg twice a day Progress note 01/28/2025 BP 130/60, Heart rate 60 bpm Sinus rhythm on telemetry Labs shows BUN 25, creatinine 0.8 01/29/2025 BP 121/69, heart rate 78 bpm, BUN 26, creatinine 0.9, Appears to be reaching euvolemia Sitting in a chair, family at bedside 01/30 Patient seen and examined. Patient remains in atrial fibrillation with controlled rate and IVCD. She complains of cough. She denies chest pain or chest pressure. No palpitations. Blood pressure 128/58, heart rate in the 60s and 70s, pulse ox 98% on 2 L nasal cannula. Repeat blood work reveals sodium at 129, BUN 27 creatinine 1.22. Patient is maintained on oral oral medications. 01/31 Patient seen and examined. Patient remains in atrial fibrillation with controlled ventricular rate. Heart rate is in the 70s, blood pressure 125/82, pulse ox 93% on room air. Repeat blood work reveals sodium 131, BUN 21 creatinine 1.08. PHYSICAL EXAM: VITAL SIGNS: Reviewed. GENERAL: Well-developed in no acute distress. HEENT: Head is normocephalic. Pupils are equal, round. Sclerae anicteric. Mucous membranes of the mouth are moist. Neck supple. Mildly elevated LUNGS: Respirations even and unlabored. Rhonchi bilateral. HEART: Irregular rate and rhythm. S1 and S2 heard. 2/6 systolic murmur. ABDOMEN: Soft. Nondistended. Nontender. EXTREMITIES: No lower extremity edema NEUROLOGIC: Awake, alert oriented ASSESSMENT: Dyspnea on exertion, mildly improved since admission Acute influenza A Acute heart failure with reduced EF 35 to 40% Cardiomyopathy, ischemic versus nonischemic New onset atrial fibrillation with controlled ventricular response History of hypertension History of fibromyalgia History of osteoarthritis History of seizure disorder History of syncope PLAN: No need to repeat echocardiogram as this was performed at [facility] in December 2024 Discontinue amlodipine Decrease metoprolol tartrate to 25 mg twice a day Continue new cardiac medications: Eliquis 5 mg twice a day, atorvastatin 20 mg at night, losartan 25 mg daily, spironolactone 12.5 mg daily, Demadex 10 mg daily Recommend eventual ischemic evaluation Consider rhythm control with LYNDSEY cardioversion once influenza resolves and she may follow-up in the office for this Following discharge, patient will follow-up in the office with Dr. Lugo in 2 weeks. Nurse practitioner note has been reviewed, I agree with documented findings and plan of care. Patient was seen and examined. Objective - Vital Signs Vital signs: Vital Signs Temp 97.7 F 01/31/25 08:21 Pulse 64 01/31/25 08:21 Resp 18 01/31/25 08:21 BP 121/90 01/31/25 08:21 Pulse Ox 100 01/31/25 10:28 FiO2 Intake & Output 01/30/25 01/31/25 01/31/25 18:59 06:59 18:59 Intake Total 240 120 Output Total 1300 Balance -1060 120 Weight 106 kg Intake: Oral 240 120 Output: Urine 1300 Other: Voiding Method Indwelling Catheter Toilet Bedside Commode # Voids 1 # Bowel Movements 1 - Labs CBC & Chem 7: 01/27/25 08:10 01/31/25 06:35 Labs: Abnormal Lab Results - Last 24 Hours (Table) 01/31/25 Range/Units 06:35 Sodium 131 L (137-145) mmol/L Chloride 93 L (98-107) mmol/L Carbon Dioxide 36 H (22-30) mmol/L BUN 21 H (7-17) mg/dL Creatinine 1.08 H (0.52-1.04) mg/dL
== END 2025-01-31 15:21 | disposition home or self-care (01) | DRG 291 ==
LOC: 3SCARD 18:33
PROVIDERS: ADMIT Hospitalist; ATTEND Hospitalist
DX: I11.0 Hypertensive heart disease with heart failure (principal); I50.21 Acute systolic (congestive) heart failure; J96.01 Acute respiratory failure with hypoxia; I48.19 Other persistent atrial fibrillation; E87.1 Hypo-osmolality and hyponatremia; G40.909 Epilepsy, unspecified, not intractable, without status epilepticus; H91.90 Unspecified hearing loss, unspecified ear; M06.9 Rheumatoid arthritis, unspecified; J44.9 Chronic obstructive pulmonary disease, unspecified; I48.91 Unspecified atrial fibrillation; J10.1 Influenza due to other identified influenza virus with other respiratory manifestations; M79.7 Fibromyalgia; R32 Unspecified urinary incontinence; I25.5 Ischemic cardiomyopathy; I25.10 Atherosclerotic heart disease of native coronary artery without angina pectoris; K21.9 Gastro-esophageal reflux disease without esophagitis; Z87.891 Personal history of nicotine dependence; Z79.899 Other long term (current) drug therapy; Z98.84 Bariatric surgery status
CPT/HCPCS: 71046; 80048; 80053; 80061; 83036; 83880; 84443; 85025; 94760